=== PATIENT | female | born 2000 | race Caucasian/White ===

== ENCOUNTER 2019-05-19 22:21 | Emergency (ER) | payer MEDICAID ==
[~2019-05-19] VITALS: Ht 167.6 cm; Wt 165.0 kg
[2019-05-19 22:49] LABS: MICROSCOPIC NOT IND
--- NOTE | 2019-05-19 23:15 | NUR ---
PT TO ROOM VIA WC FROM LOBBY.
--- NOTE | 2019-05-19 23:23 | NUR ---
PT IN US.
--- NOTE | 2019-05-19 23:45 | NUR ---
PT BACK FROM US, AMBULATES TO BR WITHOUT ASSIST. LABS DRAWN. ERP IN TO SEE PT.
[2019-05-19 23:53] LABS: BASOPHILS # (AUTO) 0.03 x10^3/uL (0-0.3); BASOPHILS % (AUTO) 0 % (0-1); EOSINOPHILS # (AUTO) 0.13 x10^3/uL (0-0.8); EOSINOPHILS % (AUTO) 1 % (1-7); LYMPHOCYTES # (AUTO) 1.62 x10^3/uL (1-6.1); LYMPHOCYTES % (AUTO) 18 % (22-44); MD NO; MEAN CORPUSCULAR HEMOGLOBIN 28.7 pg (27.0-34.8); MEAN CORPUSCULAR HGB CONC 32.4 g/dL (32.4-35.8); MEAN CORPUSCULAR VOLUME 88.6 fL (80-100); MEAN PLATELET VOLUME 8.2 fL (7.4-10.4); MONOCYTES # (AUTO) 0.71 x10^3/uL (0-1.4); MONOCYTES % (AUTO) 8 % (2-9); NEUTROPHILS # (AUTO) 6.62 x10^3/uL (1.8-8.0); NEUTROPHILS % (AUTO) 73 % (42-75); PLATELET COUNT 229 x10^3/uL (130-400); RED BLOOD COUNT 4.51 x10^6/uL (3.82-5.3); RED CELL DISTRIBUTION WIDTH 19.1 % (9.6-15.2)
--- NOTE | 2019-05-19 23:56 | NUR ---
ADD ON US ORDER, PT BACK TO US.
[2019-05-20 00:03] LABS: ALBUMIN 3.1 g/dL (3.4-5.0); ANION GAP 5 mmol/L (5-15); CALCIUM 9.3 mg/dL (8.5-10.1); CHLORIDE 106 mmol/L (98-107)
--- NOTE | 2019-05-20 00:03 | NUR ---
REPORT TO PATRIZIA PILLAI, TRANSFER OF CARE AT THIS TIME.
[2019-05-20 00:06] LABS: ALANINE AMINOTRANSFERASE 17 U/L (12-78); ALKALINE PHOSPHATASE 62 U/L (45-117); BILIRUBIN,TOTAL 0.3 mg/dL (0.2-1.0); CREATININE 0.73 mg/dL (0.55-1.02); TOTAL PROTEIN 6.8 g/dL (6.4-8.2)
--- NOTE | 2019-05-20 00:06 | NUR ---
REPORT FROM JOSE PILLAI. PT AT .
[2019-05-20 00:29] VITALS: BP 107/81
--- NOTE | 2019-05-20 01:09 | NUR ---
Patient given discharge instructions and they have confirmed that they understand the instructions. Patient ambulatory with steady gait.
== END 2019-05-20 01:11 | disposition home or self-care (01) ==
LOC: ED 05-20 00:25
DX: O26.892 Other specified pregnancy related conditions, second trimester (principal); Z3A.18 18 weeks gestation of pregnancy; R10.9 Unspecified abdominal pain; M54.5 Low back pain
CPT/HCPCS: 36415; 76700; 76815; 80053; 81003; 83690; 85025; 99284